=== PATIENT | female | born 2005 | race Caucasian/White ===

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

== ENCOUNTER 2023-05-31 09:17 | Emergency (ER) | payer BC, MEDICAID, SELFPAY ==
[2023-05-31 09:30] VITALS: BP 128/88; PULSE 76; RESP 17; TEMP 36.8; O2SAT 99; BMI 19.3
[2023-05-31 09:37] VITALS: BP 128/88; O2SAT 100
[2023-05-31 10:37] LABS: Rapid Strep A Test Negative (Negative)
--- NOTE | 2023-05-31 10:43 | ED_ITS ---
HPI - URI/Sore Throat General: Chief Complaint: Upper Respiratory Infection Stated Complaint: swollen throat Time Seen by Provider: 05/31/23 09:19 History of Present Illness: 18-year-old female presents to the [facility] ency department complaints of sore throat and swollen tonsils this morning. She states she was seen yesterday by her primary care provider and told to take allergy medicine. She states that did not do any testing and that her throat has gotten much more sore and swollen from yesterday to today. She states it feels like she is having some difficulty breathing and states that when she looks in her throat her tonsils are very red and enlarged. She denies fevers chills or night sweats. She states she has a concern that she has tonsil stones. Review of Systems General: Reports: 10 or more systems reviewed and unremarkable except in HPI and below ENMT: Reports: throat pain, enlarged tonsils and odynophagia PFSH ED PFSH: Medical History Scoliosis Female Reproductive History: Spontaneous abortions: No Physical Exam Narrative: EXAM NARRATIVE: Constitutional: the patient appears well nourished and of normal development. Vital signs as documented. No acute distress at present. Alert and oriented-to person, place, time and situation. Head, eyes, ears, nose, mouth, throat: Normocephalic, atraumatic. Pupils-equal, round, reactive to light. No scleral icterus. Normal-appearing external ears. Normal appearing nasal turbinates, no drainage. No obvious oral lesions, posterior oropharynx with bilaterally enlarged tonsils with erythema no obvious exudates noted. Neck: Supple, trachea is midline, no lymphadenopathy, no jugular venous distension, thyromegaly, or carotid bruits. Carotid upstrokes are brisk bilaterally. Lungs: clear to auscultation to all lung brady. Symmetrical rise and fall of chest, no obvious signs of increased work of breathing at present. Cardiac: Regular rate and rhythm, positive S1, S2. No murmurs, rubs or gallops that I can appreciate Abdomen: Soft, non-tender to palpation, normal active bowel sounds to all quadrants. No palpable masses, no organomegaly and abdominal bruits. Extremities: 2+ pulses in the upper extremities that are equal bilaterally, 2+ pulses in the lower extremities that are equal bilaterally. Non-edematous. Moves all extremities well, sensation to all extremities are noted. Skin: Warm, dry, intact. Course Vital Signs: Vital signs: Vital Signs Temperature 98.2 F 05/31/23 09:30 Pulse Rate 76 05/31/23 09:30 Respiratory Rate 17 05/31/23 09:30 Blood Pressure 128/88 05/31/23 09:37 Pulse Oximetry 100 05/31/23 09:37 Oxygen Delivery Me thod Room Air 05/31/23 09:30 MDM - URI/Sore Throat Medical Decision Making Physical exam completed and documented I will obtain a rapid strep screen. Medical Records I reviewed the patient's medical records. Lab Data I reviewed the patient's lab results. Laboratory Results Group A Strep Rapid Negative (Negative) 05/31/23 10:01 No radiology studies performed this visit Discharge Plan Discharge Patient Disposition: Home Clinical Impression: Acute viral tonsillitis Condition: Stable Prescriptions: New prednisone 20 mg tablet 40 mg PO DAILY 5 Days Qty: 10 0RF No Action Isibloom 0.15-0.03 mg tablet 1 tab PO DAILY Discharge Orders: Discharge ED (Routine); Ordered 05/31/23 Ordered By: Wolf Avila Referrals: Elida Mazariegos MD [Primary Care Provider] - Discharge Diet: Advance as tolerated Discharge Activity: Resume usual activity Patient Instructions: Opioid Safety, Pain Management Activity Restrictions/Additional Instructions: Activity Restrictions/Additional Instructions: Thank you for choosing [facility] for your healthcare needs today. Please realize that you were seen in the Emergency Department and that we are providing you with an emergency medical screening exam and this may not be a complete and all inclusive of all the testing and or medical work-up that you may need to determine your ailment or severity of your illness. It is very important that you follow-up as instructed with your Primary care provider or Specialist for additional evaluation and to discuss your medical treatment plan. You may return to the Emergency Department should you have concerns or if your condition changes or worsens in any way. Coding Level of Care Code ED [employer] Work[employer] for Keagan Miranda
[2023-05-31 10:46] LABS: Influenza A by IFA negative (Negative); Influenza B by IFA negative (Negative)
[2023-05-31] MEDS: methylPREDNISolone sod succ 125 mg/2 mL INJ 60 MG IM (10:48)
== END 2023-05-31 11:06 | disposition home or self-care (01) ==
PROVIDERS: Emergency Provider Internal Medicine; PCP Family Medicine
DX: J03.80 Acute tonsillitis due to other specified organisms (principal); B97.89 Other viral agents as the cause of diseases classified elsewhere
CPT/HCPCS: 87081; 87804; 87880; 96372; 99284; J2930

== ENCOUNTER 2023-09-19 08:59 | Emergency (ER) | payer BC, MEDICAID, SELFPAY ==
[2023-09-19 09:11] VITALS: BP 108/75; PULSE 80; RESP 16; TEMP 36.8; O2SAT 100; BMI 19.4
--- NOTE | 2023-09-19 09:21 | XR_ITS ---
WS: [id number] Portable AP upright chest, 09/19/2023 Clinical Data: dyspnea/cough Comparison: None. Findings: No nodules, masses or effusions are seen. The heart is normal. The pulmonary vascularity is not increased. No pneumonia or pneumothorax is seen. XR/XR chest 1V portable [id number] Impression: Negative chest.
[2023-09-19 09:37] LABS: Basophils % 0.2 %; Eosinophils % 0.2 %; Hematocrit 37.3 % (36-47); Lymphocytes # 2.2 10^3/uL (1.5-6.5); Lymphocytes % 19.9 %; Mean Corpuscular HGB Conc 32.7 g/dL (30-55); Mean Corpuscular Hemoglobin 30.4 pg (27-33); Mean Platelet Volume 10.4 fL (7.4-10.4); Monocytes # 0.7 10^3/uL (0.2-0.9); Monocytes % 5.9 %; Neutrophils # 8.23 10^3/uL (1.8-8.0); Neutrophils % 73.4 %; Nucleated Red Blood Cells % 0 %; Platelet Count 174 10^3/cmm (157-399); Red Blood Count 4.01 10^6/uL (3.85-5.65); Red Cell Distribution Width 12.1 % (12.1-15.1)
--- NOTE | 2023-09-19 09:38 | PC.PHAR ---
GUARDIAN STATES PT TOOK CONTROL PILL THIS MORNING AND BARELY GOT IT DOWN. THAT IS HOW THEY DISCOVERED POSSIBLE OBSTRUCTED AIRWAY.
--- NOTE | 2023-09-19 09:41 | ED_ITS ---
HPI - General Adult 2 General: Chief complaint: Shortness of Breath/Dyspnea Stated complaint: sob, tonsils removed 09/17/23 Time Seen by Provider: 09/19/23 09:18 Source: patient Mode of arrival: ambulatory History of Present Illness: 18-year-old female presents to the emerg ency room status post tonsillectomy postop day #2. Having increased pain and swelling and dysphagia. Subjective low-grade fever at home she also has some referred left ear pain. No hemoptysis no active bleeding. She have a difficult time swallowing saliva. Denies vomiting or spitting up any blood Onset (ago): hour(s) Quality: sharp Pain Consistency: constant Relieving factors: none Exacerbating factors: none Associated symptoms: Deny chest pain, confusion, cough, diaphoresis, decreased appetite, dyspnea, fevers/chills, headache(s), malaise, nausea, rash, palpitations, seizures, short of breath, syncope, vomiting or weakness Treatments prior to arrival: none Review of Systems 2 Const: Denies: fever(s), chills, malaise or diaphoresis Card: Denies: chest pain, palpitations or syncope Resp: Denies: dyspnea GI: Denies: abdominal pain, nausea or vomiting : Denies: dysuria, urinary frequency or urinary urgency Musc: Denies: neck pain or back pain Skin/Breast: Denies: rash Neuro: Denies: headache(s) or confusion PFSH ED 2 PFSH: Medical History Scoliosis Female Reproductive History: Spontaneous abortions: No Physical Exam 2 Const: GENERAL APPEARANCE: cooperative ORIENTATION/CONSCIOUSNESS: Yes awake, Yes oriented to person, Yes oriented to place and Yes oriented to time HENMT: COMMON NORMALS: normocephalic, atraumatic and hearing grossly normal bilaterally HEAD & SCALP: normocephalic and atraumatic OTHER: Posterior pharynx moderate swelling eschar in place in the tonsillar bed no active bleeding no swelling of the uvula no stridor noted Resp: COMMON NORMALS: normal respiratory effort, No retractions, No use of accessory muscles and clear to auscultation bilaterally AUSCULTATION: clear to auscultation bilaterally Cardio: COMMON NORMALS: regular rate, regular rhythm and No murmurs present (Cardio) RATE: regular rate RHYTHM: regular rhythm GI: COMMON NORMALS: Soft to palpation and No hepatosplenomegaly present A USCULTATION: Yes normoactive bowel sounds PALPATION: Yes Soft to palpation, No Tenderness to palpation present (GI), No Guarding due to palpation present (GI) and Yes No hepatosplenomegaly present Extremity: COMMON NORMALS: normal to inspection, capillary refill normal, no clubbing, cyanosis or edema, no calf tenderness and no pedal edema Neuro: SENSORIUM/ORIENTATION: Yes oriented to person, Yes oriented to place and Yes oriented to time Skin: COMMON NORMALS: no rashes or lesions noted GENERAL SKIN EXAM: no rashes or lesions noted Course 2 Vital Signs: Vital signs: Vital Signs Temperature 98.2 F 09/19/23 09:11 Pulse Rate 84 09/19/23 12:13 Respiratory Rate 16 09/19/23 09:11 Blood Pressure 99/66 09/19/23 12:13 Pulse Oximetry 99 09/19/23 12:13 Oxygen Delivery Me thod Room Air 09/19/23 11:49 [facility] - General Adult Medical Decision Making Reviewed findings with the patient. Patient is improved after medications given IV fluids. Will discharge patient home on liquid steroids liquid antiemetics and pain medications reviewed findings with the patient. Also discussed with Dr. Catalan he concurs with treatment plan. Medical Records I reviewed the patient's medical records. Lab Data I reviewed the patient's lab results. 09/19/23 09:30 09/19/23 09:30 Radiology Impressions Chest X-Ray 09/19/23 09:21 Impression: Negative chest. Laboratory Results WBC 11.20 10^3/uL (4.5-13.0) 09/19/23 09:30 RBC 4.01 10^6/uL (3.85-5.65) 09/19/23 09:30 Hgb 12.20 g/dL (12.4-14.8) L 09/19/23 09:30 Hct 37.3 % (36-47) 09/19/23 09:30 MCV 93.0 fl (85-98) 09/19/23 09:30 MCH 30.4 pg (27-33) 09/19/23 09:30 MCHC 32.7 g/dL (30-55) 09/19/23 09:30 RDW 12.1 % (12.1-15.1) 09/19/23 09:30 Plt Count 174 10^3/cmm (157-399) 09/19/23 09:30 MPV 10.4 fL (7.4-10.4) 09/19/23 09:30 Neut % (Auto) 73.4 % 09/19/23 09:30 Lymph % (Auto) 19.9 % 09/19/23 09:30 Beltrami % (Auto) 5.9 % 09/19/23 09:30 Eos % (Auto) 0.2 % 09/19/23 09:30 Baso % (Auto) 0.2 % 09/19/23 09:30 Neut # (Auto) 8.23 10^3/uL (1.8-8.0) H 09/19/23 09:30 Lymph # (Auto) 2.2 10^3/uL (1.5-6.5) 09/19/23 09:30 Beltrami # (Auto) 0.7 10^3/uL (0.2-0.9) 09/19/23 09:30 Eos # (Auto) 0.0 10^3/uL (0.0-0.8) 09/19/23 09:30 Baso # (Auto) 0.0 10^3/uL (0.0-0.1) 09/19/23 09:30 Nucleated RBC % (auto) 0 % 09/19/23 09:30 Nucleated RBCs # 0.0 /100WBC 09/19/23 09:30 Sodium 137 mmol/L (136-145) 09/19/23 09:30 Potassium 3.7 mmol/L (3.5-5.1) 09/19/23 09:30 Chloride 104 mmol/L (98-107) 09/19/23 09:30 Carbon Dioxide 23 mmol/L (22-29) 09/19/23 09:30 Anion Gap 13.7 (5-19) 09/19/23 09:30 BUN 10 mg/dL (6-20) 09/19/23 09:30 Creatinine 0.7 mg/dL (0.5-0.9) 09/19/23 09:30 GFR Calculation 106.7 mL/min (90-130) 09/19/23 09:30 Glucose 79 mg/dL (65-115) 09/19/23 09:30 Calculated Osmolality 282 mOsm/kg (285-295) L 09/19/23 09:30 Calcium 8.7 mg/dL (8.5-10.5) 09/19/23 09:30 Total Bilirubin 0.4 mg/dL (0.15-1.2) 09/19/23 09:30 AST 15 U/L (0-32) 09/19/23 09:30 ALT 11 U/L (0-33) 09/19/23 09:30 Alkaline Phosphatase 51 U/L (35-105) 09/19/23 09:30 Total Protein 6.5 g/dL (6.6-8.7) L 09/19/23 09:30 Albumin 3.5 g/dL (3.5-5.2) 09/19/23 09:30 Globulin 3.0 g/dL (1.3-4.6) 09/19/23 09:30 No radiology studies performed this visit Discharge Plan Discharge Patient Disposition: Home Clinical Impression: Pharyngitis, Dysphagia, S/P tonsillectomy Condition: Stable Prescriptions: New prednisolone 15 mg/5 mL solution 15 mg PO BID 7 Days Qty: 70 0RF ondansetron 4 mg tablet,disintegrating 4 mg PO Q8H PRN (Reason: nausea and vomiting) 5 Days Qty: 14 0RF hydrocodone-acetaminophen 7.5-325 mg/15 mL solution 15 ml PO Q6H PRN (Reason: pain) Qty: 200 0RF No Action desogestrel-ethinyl estradiol [Isibloom] 0.15-0.03 mg tablet 1 tab PO DAILY acetaminophen-codeine 300-30 mg tablet 1 - 2 tab PO Q46H PRN (Reason: Pain) Denta 5000 Plus 1.1 % cream See Rx Instructions .ROUTE .COMPLEX Rx Instructions: BRUSH ON ONCE DAILY BEFORE BED INSTRUCTED BY DENTIST. Discharge Orders: Discharge ED (Routine); Ordered 09/19/23 Ordered By: Dilip Riggs Referrals: Elida Mazariegos MD [Primary Care Provider] - Discharge Diet: Full LIquid Discharge Activity: Increase activity as tolerated Patient Instructions: Opioid Safety, Pain Management Activity Restrictions/Additional Instructions: Thank you for choosing [facility] for your healthcare needs today. Please realize this is an emergency room and that we are providing you with a medical screening exam and this may not be complete and all inclusive of all the testing and or work up that you may need to determine your ailment or severity of your illness. It is very important that you follow up as instructed or that you return to the Emergency Department should you have concerns or if your condition changes or worsens in any way. You were seen today for sore throat difficulty swallowing after your tonsillectomy. Recommend you stick with a liquid diet over the next several days until your symptoms improve. You were given a single dose of IV steroid in the emergency room recommend that you start the oral steroid tomorrow. You are also given liquid pain medications and nausea medications to use as needed. Follow-up with Dr. Catalan's office next week. We did contact Dr. Catalan made him aware of your difficulties and the medications that we are giving he agreed with treatment plan. Coding Level of Care Code ED [employer] for Keagan Miranda
[2023-09-19 09:55] LABS: Alanine Aminotransferase 11 U/L (0-33); Albumin Level 3.5 g/dL (3.5-5.2); Alkaline Phosphatase 51 U/L (35-105); Anion Gap 13.7 (5-19); Aspartate Amino Transferase 15 U/L (0-32); Blood Urea Nitrogen 10 mg/dL (6-20); Calcium 8.7 mg/dL (8.5-10.5); Carbon Dioxide 23 mmol/L (22-29); Chloride 104 mmol/L (98-107); Glomerular Filtration Rate 106.7 mL/min (90-130); Glucose 79 mg/dL (65-115); Osmolality Calculated 282 mOsm/kg (285-295); Potassium 3.7 mmol/L (3.5-5.1); Sodium 137 mmol/L (136-145); Total Bilirubin 0.4 mg/dL (0.15-1.2); Total Protein 6.5 g/dL (6.6-8.7)
[2023-09-19] MEDS: sodium chloride 0.9% 1,000 ML 999 ML IV (09:55)
[2023-09-19] MEDS: ketorolac 30 mg/mL INJ IVP (09:57)
[2023-09-19] MEDS: metoclopramide 5 mg/mL SDV 2 mL 10 MG IVP (09:59)
[2023-09-19 10:01] VITALS: PULSE 68; O2SAT 100
[2023-09-19] MEDS: morphine 4 mg/mL SDV 1 mL 2 MG IVP (10:05)
[2023-09-19] MEDS: dexamethasone 10 mg/mL INJ IM (10:07)
[2023-09-19 10:17] VITALS: BP 108/68
[2023-09-19 11:49] VITALS: BP 100/60; PULSE 97; O2SAT 100
[2023-09-19 12:13] VITALS: BP 99/66; PULSE 84; O2SAT 99
== END 2023-09-19 12:15 | disposition home or self-care (01) ==
PROVIDERS: Emergency Provider Family Medicine; PCP Family Medicine
DX: J02.9 Acute pharyngitis, unspecified (principal); R13.10 Dysphagia, unspecified; Z98.890 Other specified postprocedural states
CPT/HCPCS: 36415; 71045; 80053; 85025; 96361; 96372; 96374; 96375; 99284; J1100; J1885; J2270; J2765; J7030

== ENCOUNTER → 2023-09-25 11:24 | Outpatient (BNVA) | payer BC, MEDICAID, SELFPAY | PROVIDERS: PCP Family Medicine; Visit Provider Emergency Medicine | DX: R55 Syncope and collapse (principal); K59.03 Drug induced constipation | CPT/HCPCS: 81000 ==

== ENCOUNTER 2024-03-12 07:19 | Outpatient (CLI) | payer BC, MEDICAID, SELFPAY ==
--- NOTE | 2024-03-12 07:45 | US_ITS ---
WS: [id number] ABDOMINAL ULTRASOUND REASON FOR EXAM: R10.11 - Right upper quadrant pain TECHNIQUE: Grayscale and Doppler ultrasound examination of the abdomen. FINDINGS: Pancreas: No ductal dilatation, mass, or calcification. Abdominal aorta and IVC: Normal Liver: Liver measures 15.2 cm in length. Normal echogenicity without focal lesion. Normal portal veno us flow. Gallbladder: Gallbladder wall thickness measures 0.2 cm. No calculi identified. No evidence of acute cholecystitis. Left kidney: Left kidney measures 10.1 cm x 5.2 cm x 5.7 cm. No mass, calculus, or hydronephrosis. Le ft renal cortex 1.2 cm. Right kidney: Right kidney measures 9.2 cm x 4.6 cm x 4.5 cm. Right kidney cortex measures 0.9 cm Spleen: Spleen measures 10.6 cm x 4.0 cm x 9.8 cm. No focal lesion. No ascites. US/US abdomen complete* [id number] IMPRESSION: No significant abnormality.
== END 2024-03-12 07:20 | disposition home or self-care (01) ==
LOC: RAD 07:20
PROVIDERS: PCP Nurse Practitioner Family; Visit Provider Nurse Practitioner Family
DX: R10.11 Right upper quadrant pain (principal); R10.13 Epigastric pain
CPT/HCPCS: 76700

== ENCOUNTER 2024-12-09 07:30 | Outpatient (CLI) | payer BC, MEDICAID, SELFPAY ==
--- NOTE | 2024-12-09 07:50 | NM_ITS ---
WS: [id number] NUCLEAR MEDICINE HIDA SCAN CLINICAL INFORMATION: RUQ PAIN TECHNIQUE: Following intravenous administration of 7.8 mCi of technetium 99m mebrofenin, images of the abdomen were obtained over the course of 60 minutes. Next, gallbladder ejection fraction was determined by obtaining preprandial and one-hour postprandial images of the gallbladder following oral ingestion of Ensure. FINDINGS: Normal hepatic uptake at 5 minutes. Normal hepatic excretion. Gallbladder is visualized by 15 minutes. No evidence of acute cholecystitis. Normal common bile duct and small bowel activity. Decreased gallbladder ejection fraction 34%. Findings compatible with gallbladder dysfunction. Recommend correlation for chronic cholecystitis. NM/NM hepatobiliary w phar* [id number] IMPRESSION: 1. No evidence of acute cholecystitis. 2. Decreased gallbladder ejection fraction 34%. Findings compatible with gallb ladder dysfunction. Recommend correlation for symptoms of chronic cholecystitis .
== END 2024-12-09 07:31 | disposition home or self-care (01) ==
LOC: RAD 07:33
PROVIDERS: PCP Nurse Practitioner Family; Visit Provider Nurse Practitioner Family
DX: R10.11 Right upper quadrant pain (principal); K81.1 Chronic cholecystitis
CPT/HCPCS: 78227; A9537

== ENCOUNTER 2024-12-29 05:51 | Day surgery (SDC) | payer BC, MEDICAID, SELFPAY ==
[2024-12-29] VITALS (21 sets, daily range): BP systolic 93–118; BP diastolic 58–97; PULSE 45–80; RESP 16–19; TEMP 36.1–37.1; O2SAT 95–100
--- NOTE | 2024-12-29 06:21 | ANES.PREANE2 ---
Pre-Anesthetic Assessment Height/Weight: Height 5 ft 4 in Preop Diagnosis: Biliary dyskinesia Operation Date: 12/29/24 07:00 Proposed Procedures p Laparoscopic Cholecystectomy Lap [place]apa 20222 K82.8(Not Applicable) - Jhon Arreola MD Was Beta Constantino taken within 24 hours: N/A Was Clonidine taken within 24 hours: N/A Social Tobacco and No alcohol Exam alert, oriented x 3, clear to auscultation bilaterally and regular rate & rhythm Airway Submandibular: within normal limits Cervical ROM: within normal limits Mallampati: Class I Dentition: full Anesthetic Plan ASA status: 2 Anesthesia: General Other: Patient states that with her tonsillectomy she got very sick and woke up crying N.p.o. since yesterday evening Current smoker, vapes nicotine Alpha gal allergy noted, anesthesia team aware Denies any cardiac issues test Plan for GETA Medications/Allergies Home Medications ?Medication ?Instructions ?Recorded ?Confirmed ?Last Taken ?Type desogestrel 0.15 mg-ethinyl 1 tab PO DAILY 05/31/23 12/29/24 12/29/24 History estradiol 0.03 mg tablet (Isibloom) Allergies Allergy/AdvReac Type Severity Reaction Status Date / Time aspirin Allergy Intermediate ADR-Migrain Verified 12/28/24 10:22 e Alpha-Gal Allergy ADR-Itching Verified 12/29/24 06:08 (Bixdqeiff-Iloex-3,3-Gala latex Allergy ALGY-Redness Verified 12/28/24 10:22 of Skin cefdinir AdvReac Mild itch and Verified 12/28/24 10:22 head pounds sulfamethoxazole (From AdvReac Mild itch and Verified 12/28/24 10:22 Bactrim) head pounds trimethoprim (From Bactrim) AdvReac Mild itch and Verified 12/28/24 10:22 head pounds [facility] Anesthesia Medical History (Updated 12/23/24 @ 08:40 by Jhon Arreola MD) Scoliosis Social History Smoking and tobacco/nicotine status: current every day tobacco/nicotine user Female Reproductive History Spontaneous abortions: No
[2024-12-29 06:45] LABS: OR HCG Qualitative Urine Negative (Negative)
--- NOTE | 2024-12-29 07:08 | W.PM.OPSUD ---
Surgery/Procedure H&P Update DATE OF PROCEDURE: December 29, 2024 DATE H&P PERFORMED: 12/23/24 H&P UPDATE INFORMATION: I have reviewed H&P completed within last 30 days, I have examined patient prior to procedure, No changes to prior documentation and Risks and benefits of the procedure reviewed PREOP DIAGNOSIS: Biliary dyskinesia PLANNED PROCEDURE: Operation Date: 12/29/24 07:00 Proposed Procedures p Laparoscopic Cholecystectomy Lap [place] [id number] K82.8(Not Applicable) - Jhon Arreola MD
[2024-12-29] MEDS: ceFAZolin 2,000 mg SDV 2000 MG IVP (07:12)
[2024-12-29] MEDS: lidocaine-epi 1% PF 1:200,000 30 mL SDV INJECTION (07:29)
--- NOTE | 2024-12-29 07:53 | P.OP_ITS ---
Operative Report Date of procedure: December 29, 2024 Pre-op diagnosis: Gallbladder dyskinesia Post-op diagnosis: same Post-op findings: Unremarkable gallbladder Procedure done: Laparoscopic cholecystectomy Implants: N/A Specimens removed/disposition: Gallbladder sent to pathology Pathology: Gallbladder sent to pathology Surgeon: Jhon Arreola MD [id number] Directory Assistance Operator: N/A Anesthesia: General Estimated blood loss (mL): 10 Complications: N/A Findings: Unremarkable gallbladder Condition: stable Disposition: same day Brief History: 19-year-old female who presented with gallbladder dyskinesia. Discussed risk and benefits and patient agreed to proceed with laparoscopic cholecystectomy possible open. Procedure: I discussed the risks and benefits of laparoscopic cholecystectomy, possible open, and obtained consent prior to proceeding to the operating room. SCDs were utilized. Prophylactic antibiotics were administered. General anesthesia was induced. The patient was placed supine, and was prepped and draped in the usual sterile fashion. Insufflation to 15mmHg was achieved using a Veress needle at Ortiz's point. A 5mm optiview trocar was placed at the umbilicus under direct visualization. The left upper quadrant was inspected, and no injuries were noted. Two 5mm ports were placed in the right upper quadrant, and a 12mm working port was placed in the epigastrium. The gallbladder was then retracted cephalad through the lateral RUQ port, and the infundibulum grabbed through the medial RUQ port and retracted laterally. The gallbladder was not inflammed consistent with the diagnosis of gallbladder dyskinesia. I proceeded to score the peritoneum over the medial aspect of the gallbladder using a laparoscopic hook with electrocautery. Then the infundibulum was retracted medially in order to score the peritoneum over the lateral aspect of the galbladder. Using a combination of energy and blunt dissection with the [place] and a Kittner dissector, the cystic artery and cystic duct were dissected. I then proceeded to dissect the cystic plate in order to to achieve the critical view of safety (CVS - hepatocystic triangle was cleared of fat and fibrous tissue, the lower one- third of the gallbladder was from the liver to expose the cystic plate, two and only two structures were seen entering the gallbladder, the cystic duct and the cystic artery). The cystic artery and the cystic duct were clipped three times (leaving two clips on the proximal end of both structures). I then proceeded to dissect the gallbladder off the liver using hook electrocautery. The specimen was placed in an endocatch bag and retrieved from the abdomen through the port on the epigastrium. I then irrigated the gallbladder fossa with 1L of NS to confirm adequate hemostasis and the absence of any bile leaks. The gallbladder fossa was then cauterized again. Prior to ending the laparoscopic portion, I examined the rest of the abdomen and did not find any abnormalities or injuries. The abdomen was then desufflated. Skin was closed using 4-0 monocryl and surgical glue. The patient woke up from anesthesia and transferred to PACU without any complications.
[2024-12-29] MEDS: ondansetron 2 mg/ML SDV 2 mL 4 MG IVP ×3 (08:13→10:01)
[2024-12-29] MEDS: HYDROmorphone 1 mg/mL INJ 1ml 0.5 MG IVP ×2 (08:55→09:05)
--- NOTE | 2024-12-29 10:45 | ANE.PACU2 ---
Inpatient post-anesthesia follow up: Airway intact: Yes Vital signs: Temperature 98.2 F Pulse Rate 59 Respiratory Rate 16 Blood Pressure 100/67 Pulse Oximetry 97 Oxygen Delivery Me thod Room Air Oxygen Flow Rate 6 Fraction of Inspir ed Oxygen Hydration adequate: Yes Nausea and vomiting: No Pain level: 1 Mental status: Baseline
== END 2024-12-29 10:45 | disposition home or self-care (01) ==
PROVIDERS: Student in an Organized Health Care Education/Training Program; PCP Nurse Practitioner Family; Visit Provider Student in an Organized Health Care Education/Training Program
PROC: 0FT44ZZ Resection of Gallbladder, Percutaneous Endoscopic Approach (ICD-10-PCS; CPT 47562; principal; 2024-12-29 07:00)
DX: K81.1 Chronic cholecystitis (principal); F17.290 Nicotine dependence, other tobacco product, uncomplicated; Z91.014 Allergy to mammalian meats
CPT/HCPCS: 47562; 81025; 88304; A4216; J0131; J0690; J1100; J1171; J1885; J2250; J2405; J3010; J3490; J7030; J9999